=== PATIENT | male | born 1970 | race African-American/Black ===

== ENCOUNTER 2020-01-06 03:58 | Emergency (ER) | payer OTHER ==
[~2020-01-06] VITALS: Ht 190.5 cm; Wt 140.2 kg
[2020-01-06 04:30] VITALS: BP 155/100
[2020-01-06] MEDS ORDERED: MONOPRIL20 MG PO (04:32)
[2020-01-06] MEDS ORDERED: METFORMIN HCL500 M3 PO (04:33)
[2020-01-06] MEDS ORDERED: SUBOXONE 8 MG-1 EAC3 (04:34)
[2020-01-06] MEDS ORDERED: TRI MIX 150 MG (04:36)
== END 2020-01-06 04:45 | disposition home or self-care (01) ==
LOC: M.ERS 03:58
DX: N48.30 Priapism, unspecified (principal)